=== PATIENT | female | born 1950 | race Caucasian/White ===

== ENCOUNTER → 2018-02-02 07:19 | Outpatient (CLI) | payer MEDICARE, OTHER, SELFPAY ==
[2018-02-02 07:26] LABS: Bacteria 0 SEEN /hpf (None Seen); Mucous, Urine 0 SEEN /hpf (<or=2+); Red Blood Cells-Urine 0 SEEN /hpf (0-5); Squamous Epithelial Cells - UA 0 SEEN /hpf (5-10); White Blood Cells 0 SEEN /hpf (0-5)
[2018-02-02 08:21] LABS: Color, Urine Yellow (Yellow); Glucose, Dipstick Normal (Normal); Ketone-Dipstick Negative (Negative); Leukocyte Esterase-Dipstick Negative /ul (Negative); Nitrite-Dipstick Negative (Negative); Occult Blood-Urine Negative /ul (Negative); Protein-Dipstick Negative (Negative); Specific Gravity, Urine 1.015 (1.002-1.030); Urine Bilirubin Dipstick Negative (Negative); Urine Clarity Clear (Clear); Urine Urobilinogen Normal (Normal)
[2018-02-02 08:55] LABS: ALB/GLOB Ratio 1.1 RATIO (0.9-2.4); AST(SGOT) 22 U/L (15-37); Alanine Aminotransfer ALT/SGPT 25 U/L (13-56); Albumin, Serum 3.7 g/dL (3.2-5.0); Alkaline Phosphatase 76 U/L (45-117); Anion Gap 5 (5-15); BUN 24 mg/dL (7-18); BUN/Creat Ratio 33.6 RATIO (10-20); Calcium,Total 8.9 mg/dL (8.5-10.1); Chloride 103 mmol/L (98-107); Cholesterol 154 mg/dL (200); Creatinine, Serum 0.72 mg/dL (0.55-1.02); EST Glomerular Filtration Rate 87 mL/min (>60); Est Glom Filt Rate - Afr Amer 105 mL/min (>60); Globulin 3.4 g/dL (2.2-4.2); Glucose 83 mg/dL (74-106); High Density Lipoprotein 51 mg/dL; Protein, Total 7.1 g/dL (6.4-8.2); Sodium Level 140 mmol/L (136-145); Thyroid Stim Hormone (TSH) 1.47 uIU/mL (0.358-3.74); Triglycerides 81 mg/dL; Very Low Density Lipoprotein 16 mg/dL (5-40)
== END ==
DX: I10 Essential (primary) hypertension (principal); E03.9 Hypothyroidism, unspecified; Z79.899 Other long term (current) drug therapy
CPT/HCPCS: 36415; 80053; 80061; 81001; 84443

== ENCOUNTER → 2018-09-14 05:58 | Outpatient (CLI) | payer MEDICARE, OTHER, SELFPAY ==
[2017-10-21 09:42] VITALS: BMI 22.1
[2018-09-14 08:48] LABS: ALB/GLOB Ratio 1.1 RATIO (0.9-2.4); AST(SGOT) 20 U/L (15-37); Alanine Aminotransfer ALT/SGPT 32 U/L (13-56); Albumin, Serum 3.7 g/dL (3.2-5.0); Alkaline Phosphatase 79 U/L (45-117); Anion Gap 6 (5-15); BUN 17 mg/dL (7-18); BUN/Creat Ratio 25.2 RATIO (10-20); Chloride 101 mmol/L (98-107); Cholesterol 172 mg/dL (200); Creatinine, Serum 0.68 mg/dL (0.55-1.02); EST Glomerular Filtration Rate 92 mL/min (>60); Est Glom Filt Rate - Afr Amer 112 mL/min (>60); Globulin 3.5 g/dL (2.2-4.2); Glucose 83 mg/dL (74-106); High Density Lipoprotein 58 mg/dL; Potassium 3.9 mmol/L (3.5-5.1); Protein, Total 7.2 g/dL (6.4-8.2); Sodium Level 140 mmol/L (136-145); Thyroid Stim Hormone (TSH) 2.16 uIU/mL (0.358-3.74); Triglycerides 80 mg/dL; Very Low Density Lipoprotein 16 mg/dL (5-40)
== END ==
DX: I10 Essential (primary) hypertension (principal); E03.9 Hypothyroidism, unspecified; I51.7 Cardiomegaly; Z79.899 Other long term (current) drug therapy
CPT/HCPCS: 36415; 80053; 80061; 84443

== ENCOUNTER → 2018-09-15 07:29 | Outpatient (CLI) | payer MEDICARE, OTHER, SELFPAY ==
[2017-10-21 09:42] VITALS: BMI 22.1
--- NOTE | 2018-09-15 07:33 | BI_ITS ---
MAMMOGRAPHY - BILATERAL SCREENING REASON FOR EXAM: Female, 68 years old. Routine annual screening examination. PERTINENT HISTORY: Grandmother with breast cancer. TECHNIQUE: Digital bilateral breast jayesh (3D mammographic acquisition) in the CC and MLO projections. 2-D mediolateral oblique (MLO) and craniocaudad (CC) views of both breasts were obtained. CAD: Full Field Digital Mammography with Computer Added Detection was performed. COMPARISON: Comparison is made with prior outside examination of October 14, 2016. FINDINGS: Breast Composition: There are scattered areas of fibroglandular density. There are no dominant masses or suspicious calcifications. Stable small bilateral axillary lymph nodes. No other significant abnormalities are identified. There has been no significant change since the prior study. BI/SCREENING MAMM (CAD), BILAT IMPRESSION: Stable bilateral screening mammogram. Yearly follow-up mammogram recommended. (A) ASSESSMENT CATEGORY: BIRADS Category 2: Benign. A letter regarding these results will be sent to the patient by the facility within 30 days. Approximately 10% of breast cancers are not detected by mammography. A normal mammogram should not delay biopsy of a clinically suspicious abnormality. [id number] Electronically Signed: Ortiz Taylor MD at 15:33 EST Tel [phone], Service support ,
== END ==
DX: Z12.31 Encounter for screening mammogram for malignant neoplasm of breast (principal)
CPT/HCPCS: 77063; 77067

== ENCOUNTER → 2018-09-22 07:36 | Outpatient (CLI) | payer MEDICARE, OTHER, SELFPAY ==
[2017-10-21 09:42] VITALS: BMI 22.1
--- NOTE | 2018-09-22 07:53 | ECHOD_ITS ---
Reason For Study: HYPERTENSION Procedure This was a 2D Doppler, Color Flow transthoracic echocardiogram. Exam performed in department. Left Ventricle Normal LV size. Left ventricular systolic function is normal. The estimated ejection fraction is 55 %. No evidence for diastolic dysfunction. No regional wall motion abnormalities noted. Right Ventricle Normal RV size. Normal systolic function. Atria Normal left atrium. Normal right atrium. No doppler evidence for ASD. Mitral Valve There is no mitral annular calcification. Mild diffuse mitral valve thickening. 2D echocardiographic image c/w redundant chordae tendonae. Mild (1+) eccentric mitral valve insufficiency. Tricuspid Valve Normal tricuspid valve. Mild tricuspid valve insufficiency. Right ventricular systolic pressure estimated to be 19 mmHg. Aortic Valve Trisinus/trileaflet aortic valve. Normal aortic valve. Pulmonic Valve The pulmonic valve is not well visualized. Mild (1+) pulmonic valve insufficiency. Great Vessels Normal sized aortic root. Pericardium/Pleural No pericardial effusion. MMode/2D Measurements & Calculations LVIDd: 4.0 cm IVSd: 0.91 cm Ao root diam: 3.0 cm LVIDs: 2.7 cm LVPWd: 0.87 cm RVDd: 2.6 cm FS: 32.2 % LAV(MOD-bp): 36.7 ml LA A4 area: 12.7 cm2 LA dimension(2D): 2.8 cm LAV(MOD-bp) Indexed: 22.9 ml/m2 LAV(MOD-sp2): 34.6 ml LAV(MOD-sp4): 31.1 ml RA A4 area: 9.4 cm2 Doppler Measurements & Calculations MV E max ghassan: 60.9 cm/sec Lat Peak E' Ghassan: 9.5 cm/sec Med Peak E' Ghassan: 5.7 cm/sec MV A max ghassan: 68.9 cm/sec E/E' lat: 6.4 E/E' med: 10.7 MV E/A: 0.88 Ao V2 max: 131.5 cm/sec LV V1 max: 109.4 cm/sec PA V2 max: 63.4 cm/sec Ao max P.9 mmHg LV V1 max P.8 mmHg TR max ghassan: 200.9 cm/sec TR max P.4 mmHg Interpretation Summary Left ventricular systolic function is normal. The estimated ejection fraction is 55 %. Mild diffuse mitral valve thickening. 2D echocardiographic image c/w redundant chordae tendonae. Mild (1+) eccentric mitral valve insufficiency. Mild tricuspid valve insufficiency. Mild (1+) pulmonic valve insufficiency. Right ventricular systolic pressure estimated to be 19 mmHg. No evidence for diastolic dysfunction. Ordering Physician: KEANU GARSIA Referring Physician: DOCTOR, OUT OF TOWN Performed By: Rajan, Victoria, RDCS, RVT
--- OUTSIDE RECORDS SUMMARY | 2018-11-26 20:01 | XMS RPT_ITS ---
:1950 Author Organization OHIP Care Team Providers Name Role Phone BRENNEN LOPEZ Attending Unavailable BRENNEN LOPEZ Referring Unavailable BRENNEN LOPEZ Primary Care Unavailable BRENNEN LOPEZ Consulting Unavailable BRENNEN LOPEZ Attending Unavailable BRENNEN LOPEZ Primary Care Unavailable BRENNEN LOPEZ Consulting Unavailable BRENNEN LOPEZ Referring Unavailable BRENNEN LOPEZ Attending Unavailable BRENNEN LOPEZ Referring Unavailable BRENNEN LOPEZ Primary Care Unavailable Max Jacobsen Attending Unavailable DOCTOR, OUT OF TOWN Referring Unavailable DOCTOR, OUT OF TOWN Primary Care Unavailable Jhonatan Khan MACHINE DRILLER-C Attending Unavailable Flores Sharp Referring Unavailable BRENNEN LOPEZ Attending Unavailable BRENNEN LOPEZ Primary Care Unavailable BRENNEN LOPEZ Referring Unavailable PROBLEMS PROBLEMS DATE TYPE CONDITION / CODE ATTENDING STATUS SOURCE 09/15/2018 Unknown Z12.31 - Encounter BRENNEN LOPEZ Active [facility] for screening Community mammogram for [facility] malignant neoplasm Repository of breast / Z12.31(ICD-10) 02/02/2018 Unknown Z79.899 - Other BRENNEN LOPEZ Active [facility] assisted [facility] (current) drug Hospital therapy / Repository Z79.899(ICD-10) 02/02/2018 Unknown I10 - Essential BRENNEN LOPEZ Active [facility] (primary) Community hypertension / Hospital I10(ICD-10) Repository 10/21/2017 Unknown H61.20 - Impacted Jhonatan Khan Active [facility] cerumen, MACHINE DRILLER-C [facility] unspecified ear / Hospital H61.20(ICD-10) Repository 10/14/2017 Unknown J32.9 - Chronic Max Jacobsen Active [place] sinusitis, [facility] unspecified / Hospital J32.9(ICD-10) Repository PROCEDURES PROCEDURES No Procedure Records FoundRESULTS RESULTS ECHOCARDIOGRAM COMPLETE Observed: 09/22/2018 Status: F Source: [place] 8:19 PM [facility] Cardiovascular Services [address] [place] [address] Echo Complete 09/22/18 0756 MR#: [id number] Acct: [id number] Name: THEODORE LIMA Rep #: [id number] : 1950 68 From: Christiano Amador MD Attending Dr: KEANU GARSIA Status: REG CLI Ordering Dr: KEANU GARSIA Date: 09/22/18 Location: [facility] Sex: F C Admitted: Reason For Study: HYPERTENSION Procedure This was a 2D Doppler, Color Flow transthoracic echocardiogram. Exam performed in department. Left Ventricle Normal LV size. Left ventricular systolic function is normal. The estimated ejection fraction is 55 %. No evidence for diastolic dysfunction. No regional wall motion abnormalities noted. Right Ventricle Normal RV size. Normal systolic function. Atria Normal left atrium. Normal right atrium. No doppler evidence for ASD. Mitral Valve There is no mitral annular calcification. Mild diffuse mitral valve thickening. 2D echocardiographic image c/w redundant chordae tendonae. Mild (1+) eccentric mitral valve insufficiency. Tricuspid Valve Normal tricuspid valve. Mild tricuspid valve insufficiency. Right ventricular systolic pressure estimated to be 19 mmHg. Aortic Valve Trisinus/trileaflet aortic valve. Normal aortic valve. Pulmonic Valve The pulmonic valve is not well visualized. Mild (1+) pulmonic valve insufficiency. Great Vessels Normal sized aortic root. Pericardium/Pleural No pericardial effusion. MMode/2D Measurements AND Calculations LVIDd: 4.0 cm IVSd: 0.91 cm Ao root diam: 3.0 cm LVIDs: 2.7 cm LVPWd: 0.87 cm RVDd: 2.6 cm FS: 32.2 % LAV(MOD-bp): 36.7 ml LA A4 area: 12.7 cm2 LA dimension(2D): 2.8 cm LAV(MOD-bp) Indexed: 22.9 ml/m2 LAV(MOD-sp2): 34.6 ml LAV(MOD-sp4): 31.1 ml RA A4 area: 9.4 cm2 Doppler Measurements AND Calculations MV E max ghassan: 60.9 cm/sec Lat Peak E' Ghassan: 9.5 cm/sec Med Peak E' Ghassan: 5.7 cm/sec MV A max ghassan: 68.9 cm/sec E/E' lat: 6.4 E/E' med: 10.7 MV E/A: 0.88 Ao V2 max: 131.5 cm/sec LV V1 max: 109.4 cm/sec PA V2 max: 63.4 cm/sec Ao max P.9 mmHg LV V1 max P.8 mmHg TR max ghassan: 200.9 cm/sec TR max P.4 mmHg Interpretation Summary Left ventricular systolic function is normal. The estimated ejection fraction is 55 %. Mild diffuse mitral valve thickening. 2D echocardiographic image c/w redundant chordae tendonae. Mild (1+) eccentric mitral valve insufficiency. Mild tricuspid valve insufficiency. Mild (1+) pulmonic valve insufficiency. Right ventricular systolic pressure estimated to be 19 mmHg. No evidence for diastolic dysfunction. Ordering Physician: KEANU GARSIA Referring Physician: DOCTOR, OUT OF TOWN Performed By: Victoria Tolentino RDCS, RVT 09/22/182018 Date Christiano Amador MD CC: KEANU RODRIGUEZ; KEANU GARSIA; OUT OF TOWN DOCTOR Date Dictated: 09/22/18 0756 Date Transcribed: 09/22/182018 Platform Worker: Signed SCREENING MAMM (CAD), Observed: 09/15/2018 Status: F Source: [place] 7:34 AM [facility] Imaging Services [address] [place] [address] SCREENING MAMM (CAD), BILAT MR#: [id number] Acct: [id number] Name: THEODORE LIMA Rep #: [id number] : 1950 F 68 From: Ortiz Taylor MD PCP: OUT OF TOWN DOCTOR Status: REG CLI Study: SCREENING MAMM (CAD), BILAT Date of Exam: 09/15/18 Exam# [id number] Ordering Dr: CHIP RODRIGUEZ MAMMOGRAPHY - BILATERAL SCREENING REASON FOR EXAM: Female, 68 years old. Routine annual screening examination. PERTINENT HISTORY: Grandmother with breast cancer. TECHNIQUE: Digital bilateral breast jayesh (3D mammographic acquisition) in the CC and MLO projections. 2-D mediolateral oblique (MLO) and craniocaudad (CC) views of both breasts were obtained. CAD: Full Field Digital Mammography with Computer Added Detection was performed. COMPARISON: Comparison is made with prior outside examination of October 14, 2016. FINDINGS: Breast Composition: There are scattered areas of fibroglandular density. There are no dominant masses or suspicious calcifications. Stable small bilateral axillary lymph nodes. No other significant abnormalities are identified. There has been no significant change since the prior study. BI/SCREENING MAMM (CAD), BILAT IMPRESSION: Stable bilateral screening mammogram. Yearly follow-up mammogram recommended. (A) ASSESSMENT CATEGORY: BIRADS Category 2: Benign. A letter regarding these results will be sent to the patient by the facility within 30 days. Approximately 10% of breast cancers are not detected by mammography. A normal mammogram should not delay biopsy of a clinically suspicious abnormality. [id number] Electronically Signed: Ortiz Taylor MD at 15:33 EST Tel [phone], Service support , CC: CHIP RODRIGUEZ; OUT OF TOWN DOCTOR Platform Worker: Signed URINALYSIS, COMPLETE Collected: 02/02/2018 Status: F Source: [place] 7:23 AM [facility] Order Comment: How was Urine Obtained? CLEAN CATCH TYPE CODE TESTS RESULT OUT OF RANGE REFERENCE UNITS LAB L400.3000 Yellow COLOR Normal Yellow LAB L400.3050 Clear Normal CLARITY Clear LAB L400.3200 Normal mg/dl Normal GLUCOSE, UR Normal LAB L400.3300 Negative mg/dL Normal BILIRUBIN URINE Negative LAB L400.3400 Negative mg/dl Normal KETONE UR Negative LAB L400.3465 1.002-1.030 Normal SP.GR. DIPSTX 1.015 LAB L400.3550 5.0 - 8.0 pH UR Normal 7.0 LAB L400.3600 Negative mg/dl PROT Normal DIPSTX Negative LAB L400.3700 Normal mg/dl Normal UROBILI Normal LAB L400.3750 Negative Normal NITRITE UR Negative LAB L400.3780 Negative /ul Normal OCCULT BLOOD-UR Negative LAB L400.3800 Negative /ul LEUK Normal ESTERASE Negative LAB L400.4050 0-5 /hpf WBC 0 Normal SEEN LAB L400.4100 0-5 /hpf 0 Normal RBC-UA SEEN LAB L400.4150 5-10 /hpf SQUAM 0 Normal EPI SEEN LAB L400.4300 None Seen /hpf 0 Normal BACTERIA SEEN LAB L400.4350 <or=2+ /hpf 0 Normal MUCUS, URINE SEEN Performed By: #### L400.0001 #### [facility] [address] [place], [place], [id number] COMPREHENSIVE METABOLIC Collected: 02/02/2018 Status: F [facility] [place] 7:23 AM [facility] TYPE CODE TESTS RESULT OUT OF RANGE REFERENCE UNITS LAB L501.0100 74-106 mg/dL Normal GLU 83 Result Comment: Please note revised GLUCOSE reference range effective 2017. LAB L501.1000 7-18 mg/dL High BUN 24 LAB L501.1100 0.55-1.02 mg/dL Normal CREAT,SERUM 0.72 Result Comment: The validity of the calculated GFR AND GFRAA in patients over 70 years has not been determined. Clinical correlation is essential. LAB L501.1110 >60 mL/min Normal EST GFR 87 Result Comment: Non- GFR Calc LAB L501.1115 >60 mL/min Normal EST GFR - AA 105 Result Comment: GFR Calc LAB L501.1300 10-20 RATIO High BUN/CRE 33.6 LAB L501.1500 6.4-8.2 g/dL T Normal PROT 7.1 LAB L501.1800 3.2-5.0 g/dL Normal ALB 3.7 LAB L501.1950 2.2-4.2 g/dL Normal GLOB 3.4 LAB L501.2000 0.9-2.4 RATIO Normal A/G 1.1 LAB L501.2200 8.5-10.1 mg/dL CA Normal 8.9 LAB L501.4100 15-37 U/L Normal AST 22 LAB L501.4305 45-117 U/L Normal ALK P 76 LAB L501.4405 13-56 U/L Normal ALT 25 LAB L501.4600 0.20-1.00 mg/dL High T BILI 1.10 LAB L501.5300 136-145 mmol/L NA Normal 140 LAB L501.5600 3.5-5.1 mmol/L K Normal 4.0 LAB L501.5900 98-107 mmol/L CL Normal 103 LAB L501.6100 21.0-32.0 mmol/L Normal CO2 32.0 LAB L501.6200 5-15 Normal GAP 5 Performed By: #### L500.4050, L500.4100, L501.9520 #### [facility] [address] [facility]. [place], [place], [id number] LIPID PROFILE Collected: 02/02/2018 Status: F Source: [place] 7:23 AM [facility] TYPE CODE TESTS RESULT OUT OF RANGE REFERENCE UNITS LAB L501.4900 200 mg/dL Normal CHOL 154 Result Comment: <200 mg/dL Desirable 200-240 mg/dL Borderline >240 mg/dL High Risk LAB L501.5000 mg/dL Normal TRIG 81 Result Comment: The drugs N-Acetylcysteine and Metamizole may falsely depress this assay. Serum Triglycerides Reference Interval Normal <150 mg/dL Borderline high 150 - 199 mg/dL High 200 - 499 mg/dL Very High > or = 500 mg/dL LAB L501.6400 mg/dL Normal HDL 51 Result Comment: The drugs N-Acetylcysteine and Metamizole may falsely depress this assay. Reference Range HDL <40 mg/dL Low HDL Cholesterol HDL >or= 60 mg/dL High HDL Cholesterol LAB L501.6500 0-130 mg/dL Normal LDL 87 LAB L501.6600 5-40 mg/dL Normal VLDL 16 Performed By: #### L500.4050, L500.4100, L501.9520 #### [facility] [address] [place], [address] THYROID STIM HORMONE Collected: 02/02/2018 Status: F Source: [place] (TSH) 7:23 AM [facility] TYPE CODE TESTS RESULT OUT OF RANGE REFERENCE UNITS LAB L501.9520 0.358-3.74 uIU/mL Normal TSH 1.47 Performed By: #### L500.4050, L500.4100, L501.9520 #### [facility] [address] [place], [address] INTERNAL MEDICINE Observed: 10/21/2017 Status: F Source: [place] OFFICE VISIT 12:04 PM [facility] [address] [place] [address] OFFICE VISIT Date of Service: 10/21/17 MR#: [id number] Acct: [id number] Name: THEODORE LIMA Rep #: [id number] : 1950 Provider: Jhonatan Khan NP Age/Sex: 67/F [place] [facility] Status: Signed Intake Vital Signs10/21/17 Height 5 ft 3 in Intake Visit Reasons: F/U FROM NOW Chief Complaint: Ear discomfort and facial pressure, f/u sinusitis Is patient in pain?: Yes (headache) Pain scale (1-10): 5 Allergies ibuprofen [From Advil] Allergy (Mild, Verified 10/14/17 09:39) Unknown Medications pseudoephedrine 30 mg tablet 30 mg PO ONCE 10/14/17 [History Confirmed 10/14/17] candesartan 4 mg tablet 4 mg PO QDAY 10/21/17 [History Confirmed 10/21/17] levothyroxine 25 mcg tablet PO 10/21/17 [History Confirmed 10/21/17] triamterene 50 mg capsule 50 mg PO QDAY 10/21/17 [History Confirmed 10/21/17] PFSH Medical History Hypothyroidism (Chronic) History of melanoma (Acute) Hypertension (Suspected) Cancer (Acute) Hay fever (Acute) Thyroid disease (Acute) Surgical History History of skin surgery (Acute) Family History Mother Hypertension Thyroid disorder Hyperlipemia Osteoporosis Sister Cancer lung Diabetes Social History Smoking Status: Never smoker alcohol intake: never substance use type: does not use what type of physical activity do you participate in: running, walking, bicycling, yoga frequency: 3-4 times per week HPI HPI Chief Complaint: Ear discomfort and facial pressure, f/u sinusitis Details: THEODORE LIMA, is a 67 F who presents to the office today for an urgent care follow-up of her sinusitis and bilateral cerumen impaction. She has a past medical history as described above. She is a new patient to our office. The patient states that on 10/14/2017, she visited the urgent care for complaints of sinus pressure and bilateral ear pressure. A cerumen removal was attempted and unsuccessful and patient instructed to use Debrox drops. Patient only used them once. The patient was also treated for her sinus infection and was treated with azithromycin. The patient states that overall her sinus issues seem to be improving, she no longer has postnasal drainage or a productive cough. She is does have some residual sinus pressure and headache but it is improving. She takes [id number]-[id number] Sudafed for this as needed and has a [place] pot. She states that her main complaint is that her ears continue to be plugged. She does state she used [id number] eardrops only one time without much relief. The patient otherwise denies any fever, chills, nausea, vomiting, shortness of breath, chest pain or pressure, palpitations, orthopnea, lower extremity edema, syncope or presyncopal episodes. ROS Const Constitutional: Positive for fatigue and headache(s); no weight change, body ache, chills, sleep problems, fever(s), change in appetite, snoring, weakness, frequent falls or excessive sweating Eyes Eyes: No change in vision, eye pain, light sensitivity or blurry vision ENT ENT: Positive for headache(s), nasal congestion, ear pressure and hearing loss; no abnormal hearing, tinnitus, sore throat, neck pain, ear pain or post nasal drip Resp Respiratory: No snoring, cough, shortness of breath or wheezing Cardio Cardiology: No excessive sweating, chest pain at rest, chest pain with exertion, shortness of breath, dyspnea on exertion, palpitations, orthopnea or lightheadedness Gastro GI: Positive for bloating; no abdominal pain, change in bowel habits, constipation, diarrhea, vomiting, nausea/dyspepsia or cramping Musc Musculoskeletal: No neck pain, abnormal walking, joint pain, back pain, limited range of motion, numbness or tingling Skin Skin: No redness, dry skin, itching, lesions, wounds or rash Neuro Neurology: Positive for headache(s); no weakness, frequent falls, abnormal hearing, abnormal walking, numbness, tingling, abnormal speech, dizziness or memory loss Psych Psychiatric: No change in appetite, No memory loss, No anxiety, No depression, No Thoughts of harming yourself/Others Endo Endocrine: Positive for fatigue; no excessive sweating, cold intolerance, increased thirst/drinking, heat intolerance, flushing or increased hunger Aller/Imm Allergy/Immunologic: No wheezing, itchy eyes, hives or seasonal allergy symptoms Elías/Lymp Hematologic/Lymphatic: No easy bleeding, easy bruising or enlarged lymph nodes Exam Const General: cooperative, comfortable, no acute distress Nutritional Appearance: average body habitus, well nourished Orientation: alert, oriented x3 Limitations: mental status not altered [facility] Head: normal to inspection Ears: hearing grossly normal bilaterally, TM abnormal obstructed by cerumen bilaterally Nose: external nose normal Face and sinus: sinus tenderness maxillary Mouth: oral mucosae normal Throat: posterior oropharynx normal, tonsils absent Eyes General: appearance normal, both eyes and all related structures Neck Neck: normal visual inspection Neck mass: No Lymphatic: no lymphadenopathy noted Resp Effort AND Inspection: normal respiratory effort, able to speak in complete sentences, normal respiratory pattern, symmetric chest movement, no audible wheezes, no cough Auscultation: Bilateral: Clear to Auscultation Cardio Palpation: normal PMI Rate: regular rate Heart Sounds: S1 normal, S2 normal, normal S1 and S2, no click, no gallops, no murmurs, no rubs Skin General: no rashes or lesions noted Neuro General: alert, awake, oriented x3 Extrem General: normal to inspection, normal gait, no edema, no pedal edema Psych Appearance: grossly normal Mental Status: mental status grossly normal Affect: normal affect Attitude: cooperative Thought Process: normal Office Procedures Cerumen Removal BMS Cerumen Removal Procedure Procedure performed by: kaitlynn khan Method of removal: loop and irrigation From which ear canal was the cerumen removed: bilateral Amount of Cerumen: small Patient tolerated procedure: with discomfort Complications: none Additional Details: TMs were still unable to be visualized due to deep cerumen impaction that was unable to be removed with loop and irrigation. Patient was referred to ENT and an appointment was made for later this afternoon. Assessment AND Plan 1. Cerumen impaction H61.20 Plan Unsuccessful at disimpaction of bilateral cerumen impaction with loop and irrigation. Patient only utilize the Debrox drops once. The patient is bothered by this due to the hearing loss it causes her. Therefore patient referred to ENT for further management and an appointment was made with Dr. Eagle Godfrey this afternoon. Patient will follow up with our office at a later date for a preventative establishment appointment. Patient packet filled out and preloaded in the computer and patient instructed to bring with her all of her medications and supplements at next appointment. Previous PCP records requested for continuity of care. Orders Orders: Referrals: 2. Sinusitis J32.9 Plan Resolving after administration of azithromycin as given in the urgent care, discussed that patient may continue supportive therapy including the use of the [place] pot. Bhavin disclaimer Plan Detail Other Orders Orders: Follow Up 4 weeks or sooner for preventative establishment visit Coding Level of Care Code Off vis,est,level 3 Diagnoses Cerumen impaction H61.20 Sinusitis J32.9 10/21/17 1204 <Electronically signed by Jhonatan THURMAN> Date Jhonatan THURMAN Cosigner Signature: Date (if applicable) CC: URGENT CARE VISIT Observed: 10/14/2017 Status: F Source: [place] REPORT 1:14 PM [facility] [address] [place] [address] OFFICE VISIT Date of Service: 10/14/17 MR#: [id number] Acct: [id number] Name: THEODORE LIMA Rep #: [id number] : 1950 Provider: Max PRESCOTT Age/Sex: 67/F [place] [facility] Status: Signed Intake Vital Signs10/14/17 Height 5 ft 3 in 10/14/17 Weight: 125 lb 10/14/17 Body Mass Index (BMI) 22.1 Intake Visit Reasons: UNKNOWN Chief Complaint: Ear discomfort and facial pressure. 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 Details: THEODORE LIMA, is a 67 F who presents to the office today for initial evaluation approximately 2 week history of progressively worsening facial pressure along with right ear discomfort. Patient notes feeling that her hearing is blocked in the right ear more so than left is concerned she may have cerumen impaction. She notes no complaints of fever, sweats, rash though does note occasional chills. She has no complaints of chest pain shortness of breath. She notes no other associated symptoms no other alleviating or aggravating factors. Incidentally, she notes that she is not currently looking for a new primary care physician as she has recently relocated in the area along with her . ROS Const Constitutional: Positive for chills; no excessive sweating, abnormal sleep pattern, fever(s), night sweats or body ache Eyes Eyes: No change in vision ENT ENT: Positive for abnormal hearing, post nasal drip and sinus pressure; no ear pain, ear discharge, ear pressure or hearing loss Resp Respiratory: No cough or chest congestion Cardio Cardiology: No excessive sweating, chest pain at rest, chest pain with exertion, shortness of breath, dyspnea on exertion, irregular heart rhythm, generalized swelling or leg pain with exertion Gastro GI: No abdominal pain, change in stool character or change in bowel habits Musc Musculoskeletal: No joint pain, back pain or limited range of motion Skin Skin: No change in hair, sores or rash Neuro Neurology: Positive for abnormal hearing; no abnormal speech or abnormal movements Psych Psychiatric: No abnormal sleep pattern Endo Endocrine: No excessive sweating, change in body appearance, cold intolerance or heat intolerance Aller/Imm Allergy/Immunologic: No food intolerance Elías/Lymp Hematologic/Lymphatic: No easy bruising Exam Const General: cooperative, healthy appearing, no acute distress Nutritional Appearance: average body habitus Orientation: alert, awake, oriented x3 HENMT Head: normal to inspection Ears: hearing grossly normal bilaterally, external ears normal, TM's abnormal bilaterally (no visible due to cerumen impaction AU), EAC's normal Nose: external nose normal, nares normal, septum normal, no nasal discharge Face and sinus: normal facial exam, sinus tenderness maxillary, face symmetric Mouth: oral mucosae normal, lip normal, oropharynx normal, tongue normal Teeth and gingiva: dentition normal, gingiva normal Throat: posterior oropharynx normal, tonsils normal, uvula midline, postnasal drainage (Purulent) Eyes General: appearance normal, both eyes and all related structures Neck Neck: normal visual inspection, full ROM, no meningeal signs, supple, lymphadenopathy (Bilateral anterior cervical node swelling and tenderness to palpation) Neck mass: No Thyroid: thyroid normal Lymphatic: no lymphadenopathy noted Chest Chest palpation AND inspection: normal inspection of the chest Resp Effort AND Inspection: normal respiratory effort, able to speak in complete sentences, symmetric chest movement, no cough Auscultation: Bilateral: Clear to Auscultation Cardio Palpation: normal PMI Rate: regular rate Rhythm: regular rhythm Heart Sounds: S1 normal, S2 normal, no gallops, no murmurs, no rubs Pulses: radial pulses present GI Inspection: normal to inspection Palpation: soft, no hepatosplenomegaly Skin General: no rashes or lesions noted Neuro General: alert, awake, oriented x3, gait normal Cognition: normal cognition Speech: speech normal Gait: normal gait Motor: muscle tone normal throughout Sensory Exam: no sensory deficits noted Extrem General: normal to inspection Psych Appearance: grossly normal Mental Status: mental status grossly normal Mood: congruent mood Affect: normal affect Speech and Movement: speech and movement normal Attitude: cooperative Thought Process: normal Thought Content: normal Judgment: judgment good Office Procedures Cerumen Removal Procedure BMS Cerumen Removal Procedure Procedure performed by: Max Jacobsen Method of removal: loop and irrigation From which ear canal was the cerumen removed: bilateral Amount of Cerumen: small Patient tolerated procedure: well Complications: none Additional Details: Cerumen impaction remained in both ears after thorough assessment and procedure performance as noted above; recommend using [id number] Cerumenex in both ears and follow-up with primary care physician in 5-7 days for reevaluation at that time. Patient stated knowledge and understanding all the above. Assessment AND Plan Problems 1. Sinusitis J32.9 2. Cerumen impaction H61.20 Plan Azithromycin as prescribed today. See cerumen removal procedure above which was unsuccessful; recommend ukof-zeu-nuixxnc Cerumenex use and follow-up with PCP in 5-7 days for reevaluation. Clear fluids, rest, Advil/Tylenol as needed for symptomatic relief. Follow-up with PCP in 5 7 days as noted above, sooner should symptoms worsen or any other concerns develop; amplitude given to patient for [facility]'s internal medicine practice. Patient states knowledge and understanding all the above. This note was generated with [employer] dictation software. It may contain incorrect words, spelling, and punctuation that were not noted in checking the note before signing. Medications New: Coding Level of Care Code Off vis,new,level 4 Diagnoses Sinusitis J32.9 Cerumen impaction H61.20 10/14/17 1314 <Electronically signed by Max PRESCOTT> Date Max PRESCOTT Cosigner Signature: Date (if applicable) CC: ALLERGIES ALLERGIES DATE TYPE / CODE NAME / CODE REACTION SEVERITY SOURCE 10/14/2017 Drug ibuprofen/F0 Unknown DC [place] [facility] Allergy/4160 [id number][facility](SNOMED ORM) Repository CT) ENCOUNTERS ENCOUNTERS ADMIT/DISCHARGE ACCOUNT ADMITTING ENCOUNTER LOCATION SOURCE NUMBER CLASS 09/22/2018 [id number] Amb[place] [facility] ing:[facility] Repository 09/15/2018 [id number] Ambulatory [place] 3 [facility] ing:[facility] Repository 09/14/2018 [id number] Ambulatory [place] 0 [facility] ing:LAB.FUTUR Repository E 02/02/2018 [id number] Ambulatory [place] 4 [facility] ing:LAB Repository 10/21/2017/ [id number] Ambulatory BMSBuilding:B [place] 8 3 MS.BIM [facility] Repository 10/14/2017/ [id number] Ambulatory BMSBuilding:B [place] 8 8 MS.NOW [facility] Repository PAYERS PAYERS ENCOUNTER GUARANTOR PAYER SUBSCRIBER SOURCE 09/22/2018 [place] A Primary [place] A [place] [id number] PHANI Insurance:MEDICARE DOLLDOB: [place] [facility] [id number] Hospital [address]Pie: [phone]) Number: Repository [phone] [id number] Date:2018-09-08 09/22/2018 Secondary [place] A [place] Insurance:MUTUAL OF DOLLDOB: [facility] Number: [id number] Hospital [id number] Repository Date:1623-23-49OOKQZX OF [place] DUKE IBRAHIM 02487WX: 09/22/2018 Tertiary NOT GIVENUNK [place] Insurance:SELF PAY [facility] Number: Effective Repository Date:2018-09-08 09/15/2018 [place] A Primary [place]ODORE A [place] [id number] PHANI Insurance:MEDICARE DOLLDOB: [facility] A [facility] [id number] Hospital [address]Vwq: [phone]) Number: Repository [phone] () [id number] Date:2018-09-08 09/15/2018 Secondary THE[place]ORE A [place] Insurance:MUTUAL OF DOLLDOB: [facility] Number: [id number] Hospital [id number] Repository Date:4313-19-36UZHFAJ [place], [place] [address]RN: 09/15/2018 Tertiary NOT GIVENUNK [place] Insurance:SELF PAY [facility] Number: Effective Repository Date:2018-09-08 09/14/2018 [place] A Primary [place]ORE A [place] [id number] PHANI Insurance:MEDICARE DOLLDOB: [place] [facility] [id number] Hospital [address]Cve: [phone]) Number: Repository [phone] () [id number] Date:2018-09-13 09/14/2018 Secondary THEODORE A [place] Insurance:MUTUAL OF DOLLDOB: [facility] Number: [id number] Hospital [id number] Repository Date:8317-16-54HEXGPR [place], [place] [address]JK: 09/14/2018 Tertiary NOT GIVENUNK [place] Insurance:SELF PAY [facility] Number: Effective Repository Date:2018-09-13 02/02/2018 [place] A Primary THE[place]ORE A [place] [id number] PHANI Insurance:MEDICARE DOLLDOB: [place] [facility] [id number] Hospital [address]Vfn: (937) Number: Repository [phone] () [id number] Date:2018-02-02 02/02/2018 Secondary THEODORE A [place] Insurance:MUTUAL OF DOLLDOB: [facility] Number: [id number] Hospital [id number] Repository Date:5909-52-20MTTASH [place], [place] [address]JL: 02/02/2018 Tertiary NOT GIVENUNK [place] Insurance:SELF PAY [facility] Number: Effective Repository Date:2018-02-02 10/21/2017 THE[place]ORE Primary [place] DOLLDOB: [place] [id number] PHANI Insurance:MEDICARE [id number] [address]Doh: (937) Number: Repository [phone] () [id number] Date:2017-10-18 10/21/2017 Secondary THE[place]ORE DOLLDOB: [place] Insurance:COMMERCIAL [id number] [facility]: Hospital [id number] Repository Date: [facility] [place] [address]QU: 10/21/2017 Tertiary NOT GIVENUNK [place] Insurance:SELF PAY [facility] Number: Effective Repository Date:2017-10-18 10/14/2017 THEODORE Primary THEODORE DOLLDOB: [place] [id number] PHANI Insurance:MEDICARE [id number] [address]Epn: (937) Number: Repository [phone] () [id number] Date:2017-10-14 10/14/2017 Secondary THEODORE DOLLDOB: [place] Insurance:COMMERCIAL [id number] [facility] Number: Hospital [id number] Repository Date: [facility] [place] [address]YA: 10/14/2017 Tertiary NOT GIVENUNK [place] Insurance:SELF PAY [facility] Number: Effective Repository Date:2017-10-14
== END ==
DX: I51.7 Cardiomegaly (principal); I10 Essential (primary) hypertension
CPT/HCPCS: 93306

== ENCOUNTER → 2020-10-15 | Outpatient (CLI) | payer MEDICARE, OTHER, SELFPAY ==
[2018-10-03 10:31] VITALS: BMI 22.1
== END | disposition home or self-care (01) ==
LOC: LABSPEC 12:18
PROVIDERS: Referring Provider Dermatology; Visit Provider Dermatology
DX: L57.0 Actinic keratosis (principal)
CPT/HCPCS: 87070; 87077; 87186; 87205